=== PATIENT | female | born 1960 | race Caucasian/White ===

== ENCOUNTER 2018-01-16 11:58 | Day surgery (SDC) | payer OTHER ==
[~2018-01-16 11:58] MED LIST: LIDOCAINE 2% (SDV) 5 ML INJ
[2018-01-16] MEDS ORDERED: LACTATED RINGER'S 1,000 ML IV (13:30)
[2018-01-16] MEDS ORDERED: ONDANSETRON 4 MG INJ IV (14:30)
[2018-01-16] MEDS ORDERED: ALBUTEROL 0.083% (NEB) 2.5 MG/3 ML AMP HHN (14:30)
[2018-01-16] MEDS ORDERED: FENTAnyl 50 MCG/ML VIAL IV (14:30)
[2018-01-16] MEDS ORDERED: METOCLOPRAMIDE 10 MG INJ IV (14:30)
[2018-01-16] MEDS ORDERED: DIPHENHYDRAMINE 50 MG INJ IV (14:30)
[2018-01-16] MEDS ORDERED: FENTAnyl 50 MCG/ML VIAL (14:42)
[2018-01-16] MEDS: OXYMETAZOLINE 0.05% 15 ML NAS SPRAY NASAL (14:51)
[2018-01-16] MEDS: LIDOCAINE 1%/EPI 30 ML INJ (14:51)
[2018-01-16] MEDS ORDERED: SUCCINYLCHOLINE CHLORIDE 100 MG/5 ML SYG IV (14:55)
[2018-01-16] MEDS ORDERED: PROPOFOL 20 ML (14:55)
[2018-01-16] MEDS ORDERED: ROCURONIUM 50 MG INJ (14:55)
[2018-01-16] MEDS ORDERED: SUGAMMADEX SODIUM 200 MG/2 ML VIAL IV (14:55)
[2018-01-16] MEDS ORDERED: CEFAZOLIN 1 GM INJ (14:55)
[2018-01-16] MEDS: BACITRACIN/POLYMYXIN 28.35 GM OINT TOP (14:56)
[2018-01-16] MEDS ORDERED: DEXAMETHASONE 4 MG/ML 1 ML INJ (15:09)
[2018-01-16] MEDS ORDERED: METOCLOPRAMIDE 10 MG INJ (15:09)
[2018-01-16] MEDS ORDERED: ONDANSETRON 4 MG INJ (15:09)
[2018-01-16] MEDS: FENTAnyl 50 MCG/ML VIAL IV ×2 (15:25→16:19)
[2018-01-16] MEDS: MEPERIDINE 25 MG INJ IV (15:25)
== END 2018-01-16 17:23 | disposition home or self-care (01) ==
LOC: SDS 11:58
DX: J34.2 Deviated nasal septum (principal); J34.3 Hypertrophy of nasal turbinates; E03.9 Hypothyroidism, unspecified
CPT/HCPCS: 30140; 88300